=== PATIENT | male | born 1935 | race Caucasian/White ===

== ENCOUNTER 2016-09-15 13:18 | Inpatient (IN) ==
--- NOTE | 2016-09-15 13:28 | Emergency Department Note ---
Disposition Clinical Impression: UTI (urinary tract infection), Confusion, Abnormal chest x-ray, Urinary retention, Elevated troponin, Frail elderly, Abnormal EKG Disposition: Admitted As Inpatient [facility] Care Provider[facility] - Forms: ED Satisfaction Letter General Adult HPI - General Chief complaint: ED Recheck/Abnormal Lab/Rx Stated complaint: pulled out luu, UTI Time Seen by Provider: 09/15/16 13:27 Source: patient, EMS Limitations: altered mental status, age - History of Present Illness HPI Narrative: 81-year-old male reports emergency department EMS from the [facility]. There is concern for confusion. The patient's female relative reports the patient was seen previously at the [facility], they diagnosed him with a UTI and wanted keep in the hospital but they did not have a bed so they sent him home. The patient has been taking Macrodantin for the UTI. Per reports the patient's pulled his Luu out, he complains of suprapubic discomfort. The patient is usually fairly active and lives at home alone and takes care of himself. The patient's relative reports he has been more confused, there is no history of trauma. The patient had a remote CVA but usually still is capable of self-care. There is no history of convulsion. There is no history of unilateral arm weakness or numbness or dysarthria. There is no history of fever or chest pain or shortness of breath. No vomiting or diarrhea. No acute back pain. The patient is not able to give a clear history but his female alarm mechanism adjuster does give a lot of detail. Pain Scale: 0 - Related Data Previous Rx's Medication Instructions Recorded Ciprofloxacin [Cipro] 500 mg PO BID #14 tablet 01/11/16 Cephalexin [Keflex] 500 mg PO QID #40 capsule 03/11/16 Allergies Allergy/AdvReac Type Severity Reaction Status Date / Time codeine Allergy Itching Verified 03/13/16 04:46 All systems ED: reviewed and negative except as stated. Past Medical History - Past Medical History Medical history: Reports: cancer, CVA, diabetes, hyperlipidemia, hypertension, myocardial infarction, other Psychiatric history: Reports: no psych history - Social History Smoking Status: Former smoker Smokeless Tobacco Status: No Alcohol use: Reports: none Drug use: Reports: none Physical Exam - General Limitations: altered mental status, age General appearance: alert, in no apparent distress - Head Head exam: atraumatic, normocephalic, normal inspection - Eye Eye exam: Present: normal appearance, PERRL, EOMI - ENT ENT exam: normal exam, normal oropharynx, mucous membranes moist, normal external ear exam - Neck Neck exam: Present: normal inspection, full ROM, trachea midline. Absent: tenderness - Chest Chest inspection: Present: normal inspection, symmetric chest wall rise. Absent : tenderness - Respiratory Respiratory exam: Present: normal lung sounds bilaterally. Absent: respiratory distress - Cardiovascular Cardiovascular exam: Present: regular rate, normal rhythm, normal heart sounds - Abdominal Exam Abdominal exam: Present: soft. Absent: distention, guarding, rebound, rigidity Abdominal tenderness: Present: suprapubic, moderate - Extremities Exam Extremities exam: Present: normal inspection, full ROM. Absent: tenderness, normal capillary refill, pedal edema, joint swelling, calf tenderness - Expanded Lower Extremity Exam Lower leg exam: Absent: Homans' sign Neurovascular/Tendon exam: Present: normal capillary refill. Absent: motor deficit, sensory deficit, tendon deficit - Back Exam Back exam: Present: normal inspection, full ROM. Absent: tenderness, CVA tenderness (R), CVA tenderness (L), vertebral tenderness - Neurological Exam Neurological exam: Present: alert, oriented X3, CN II-XII intact. Absent: motor sensory deficit - Psychiatric Psychiatric exam: Present: normal affect, normal mood - Skin Skin exam: Present: warm, dry, intact, normal color. Absent: rash, cyanosis, diaphoresis, erythema, pallor, mottled Course Vital Signs Temperature 98.4 F 09/15/16 13:20 Pulse Rate 82 09/15/16 13:20 Respiratory Rate 18 09/15/16 13:20 Blood Pressure 118/64 09/15/16 13:20 O2 Sat by Pulse Oximetry 93 L 09/15/16 13:20 Temperature 98.4 F 09/15/16 13:20 Pulse Rate 85 09/15/16 15:54 Respiratory Rate 18 09/15/16 15:54 Blood Pressure 134/68 09/15/16 15:54 O2 Sat by Pulse Oximetry 100 09/15/16 15:54 Oxygen Delivery Oxygen Delivery Nasal Cannula Medical Decision Making - [facility] Narrative Medical decision making narrative: The patient appears to have failed outpatient therapy, he has acute urinary retention, a Luu catheter was placed and copious return was removed, the patient's abdominal pain resolved, the patient is confused, he has an elevated troponin, a notably elevated CRP and an abnormal chest x-ray. The patient is also slightly hypoxemic. Oxygen was supplied. Levaquin was ordered. Blood cultures were ordered. IV fluids were given. Per the patient's family member, he has malignancy which she is unaware of. The patient is currently stable, based on his multiple abnormal findings as well confusion and apparent failed outpatient therapy I think the patient would best be admitted to the hospital. I consulted with the hospitalist on-call. - Lab Data Lab results reviewed: Yes I reviewed the patient's lab results. Result diagrams: 09/15/16 14:08 09/15/16 14:08 Lab Results 09/15/16 09/15/16 09/15/16 Range/Units 14:08 14:08 14:08 WBC 8.5 (4.3-11.1) K/mcL RBC 4.44 (4.19-5.50) M/mcL Hgb 13.0 (12.9-16.9) g/dL Hct 39.7 (37.5-50.1) % MCV 89.4 (83.0-100.0) fL MCH 29.3 (28.0-33.3) pg MCHC 32.7 (31.6-35.5) g/dL RDW 14.6 H (11.5-14.5) % Plt Count 128 L (140-400) K/mcL MPV 10.7 (9.4-12.4) fL Immature Gran % 1.1 (0-4) % Seg Neutrophils % 86.0 % Lymphocytes % 6.1 % Monocytes % 6.1 % Eosinophils % 0.1 % Basophils % 0.6 % Neutrophils # 7.3 (1.6-8.9) K/mcL Lymphocytes # 0.5 L (0.6-4.6) K/mcL Monocytes # 0.5 (0.0-1.3) K/mcL Eosinophils # 0.0 (0.0-0.6) K/mcL Basophils # 0.1 (0.0-0.2) K/mcL Sodium 137 (136-145) mEq/L Potassium 3.8 (3.5-4.5) mEq/L Chloride 106 (98-109) mEq/L Carbon Dioxide 24 (19-29) mEq/L BUN 37 H (8-26) mg/dL Creatinine 1.18 (0.72-1.25) mg/dL Est GFR ( Amer) > 60 (> 60) Est GFR (Non-Af Amer) 59 L (> 60) BUN/Creatinine Ratio 31 H (6-26) Glucose 126 H (70-99) mg/dL Calculated Osmolality 294 (280-300) Lactic Acid 1.2 (0.5-2.2) mmol/L Calcium 8.4 L (8.6-10.8) mg/dL Total Bilirubin (0.2-1.2) mg/dL Direct Bilirubin (0.0-0.5) mg/dL Indirect Bilirubin (0.0-1.2) mg/dL AST (5-34) Units/L ALT (0-55) Units/L Alkaline Phosphatase (38-126) Units/L Ammonia (18-72) mcmol/L Troponin I (0-0.03) ng/mL C-Reactive Protein (Less than 5) mg/L Serum Total Protein (6.0-8.3) g/dL Albumin (3.5-5.0) g/dL Globulin (2.4-3.5) g/dL Albumin/Globulin Ratio (1.1-2.2) Urine Color (Yellow) Urine Clarity (Clear) Urine pH (5.0-8.0) pH Units Ur Specific [place] (1.010-1.025) Urine Protein (Neg-Trace) mg/dL Urine Glucose (UA) (Normal) mg/dL Urine Ketones (Negative) mg/dL Urine Blood (Negative) Urine Nitrite (Negative) Urine Bilirubin (Negative) Urine Urobilinogen (Normal) mg/dL Ur Leukocyte Esterase (Negative) Urine Microscopic RBC (0-3) per hpf Urine Microscopic WBC (0-3) per hpf Ur Squamous Epith Cells (None-Few) per lpf Urine Bacteria (None-Few) per hpf Hyaline Casts (None-Few) per lpf Ur Culture Indicated? (NO) Salicylates (15-30) mg/dL 09/15/16 09/15/16 09/15/16 Range/Units 14:08 14:08 14:08 WBC (4.3-11.1) K/mcL RBC (4.19-5.50) M/mcL Hgb (12.9-16.9) g/dL Hct (37.5-50.1) % MCV (83.0-100.0) fL MCH (28.0-33.3) pg MCHC (31.6-35.5) g/dL RDW (11.5-14.5) % Plt Count (140-400) K/mcL MPV (9.4-12.4) fL Immature Gran % (0-4) % Seg Neutrophils % % Lymphocytes % % Monocytes % % Eosinophils % % Basophils % % Neutrophils # (1.6-8.9) K/mcL Lymphocytes # (0.6-4.6) K/mcL Monocytes # (0.0-1.3) K/mcL Eosinophils # (0.0-0.6) K/mcL Basophils # (0.0-0.2) K/mcL Sodium (136-145) mEq/L Potassium (3.5-4.5) mEq/L Chloride (98-109) mEq/L Carbon Dioxide (19-29) mEq/L BUN (8-26) mg/dL Creatinine (0.72-1.25) mg/dL Est GFR ( Amer) (> 60) Est GFR (Non-Af Amer) (> 60) BUN/Creatinine Ratio (6-26) Glucose (70-99) mg/dL Calculated Osmolality (280-300) Lactic Acid (0.5-2.2) mmol/L Calcium (8.6-10.8) mg/dL Total Bilirubin 1.0 (0.2-1.2) mg/dL Direct Bilirubin 0.5 (0.0-0.5) mg/dL Indirect Bilirubin 0.5 (0.0-1.2) mg/dL AST 35 H (5-34) Units/L ALT 13 (0-55) Units/L Alkaline Phosphatase 283 H (38-126) Units/L Ammonia 27 (18-72) mcmol/L Troponin I 0.11 H* (0-0.03) ng/mL C-Reactive Protein 256 H (Less than 5) mg/L Serum Total Protein 6.3 (6.0-8.3) g/dL Albumin 2.3 L (3.5-5.0) g/dL Globulin 4.0 H (2.4-3.5) g/dL Albumin/Globulin Ratio 0.6 L (1.1-2.2) Urine Color (Yellow) Urine Clarity (Clear) Urine pH (5.0-8.0) pH Units Ur Specific [place] (1.010-1.025) Urine Protein (Neg-Trace) mg/dL Urine Glucose (UA) (Normal) mg/dL Urine Ketones (Negative) mg/dL Urine Blood (Negative) Urine Nitrite (Negative) Urine Bilirubin (Negative) Urine Urobilinogen (Normal) mg/dL Ur Leukocyte Esterase (Negative) Urine Microscopic RBC (0-3) per hpf Urine Microscopic WBC (0-3) per hpf Ur Squamous Epith Cells (None-Few) per lpf Urine Bacteria (None-Few) per hpf Hyaline Casts (None-Few) per lpf Ur Culture Indicated? (NO) Salicylates (15-30) mg/dL 09/15/16 09/15/16 Range/Units 14:08 14:40 WBC (4.3-11.1) K/mcL RBC (4.19-5.50) M/mcL Hgb (12.9-16.9) g/dL Hct (37.5-50.1) % MCV (83.0-100.0) fL MCH (28.0-33.3) pg MCHC (31.6-35.5) g/dL RDW (11.5-14.5) % Plt Count (140-400) K/mcL MPV (9.4-12.4) fL Immature Gran % (0-4) % Seg Neutrophils % % Lymphocytes % % Monocytes % % Eosinophils % % Basophils % % Neutrophils # (1.6-8.9) K/mcL Lymphocytes # (0.6-4.6) K/mcL Monocytes # (0.0-1.3) K/mcL Eosinophils # (0.0-0.6) K/mcL Basophils # (0.0-0.2) K/mcL Sodium (136-145) mEq/L Potassium (3.5-4.5) mEq/L Chloride (98-109) mEq/L Carbon Dioxide (19-29) mEq/L BUN (8-26) mg/dL Creatinine (0.72-1.25) mg/dL Est GFR ( Amer) (> 60) Est GFR (Non-Af Amer) (> 60) BUN/Creatinine Ratio (6-26) Glucose (70-99) mg/dL Calculated Osmolality (280-300) Lactic Acid (0.5-2.2) mmol/L Calcium (8.6-10.8) mg/dL Total Bilirubin (0.2-1.2) mg/dL Direct Bilirubin (0.0-0.5) mg/dL Indirect Bilirubin (0.0-1.2) mg/dL AST (5-34) Units/L ALT (0-55) Units/L Alkaline Phosphatase (38-126) Units/L Ammonia (18-72) mcmol/L Troponin I (0-0.03) ng/mL C-Reactive Protein (Less than 5) mg/L Serum Total Protein (6.0-8.3) g/dL Albumin (3.5-5.0) g/dL Globulin (2.4-3.5) g/dL Albumin/Globulin Ratio (1.1-2.2) Urine Color Dark Yellow (Yellow) Urine Clarity Cloudy A (Clear) Urine pH 6.5 (5.0-8.0) pH Units Ur Specific [place] 1.019 (1.010-1.025) Urine Protein 100 H (Neg-Trace) mg/dL Urine Glucose (UA) Normal (Normal) mg/dL Urine Ketones Trace H (Negative) mg/dL Urine Blood Moderate H (Negative) Urine Nitrite Positive A (Negative) Urine Bilirubin Negative (Negative) Urine Urobilinogen Normal (Normal) mg/dL Ur Leukocyte Esterase Moderate H (Negative) Urine Microscopic RBC 5-15 H (0-3) per hpf Urine Microscopic WBC 50-100 H (0-3) per hpf Ur Squamous Epith Cells None Seen (None-Few) per lpf Urine Bacteria Many H (None-Few) per hpf Hyaline Casts None Seen (None-Few) per lpf Ur Culture Indicated? YES A (NO) Salicylates < 5.0 L (15-30) mg/dL - Radiology Data Radiology results reviewed: Yes I reviewed the patient's radiology results.
[2016-09-15] MEDS ORDERED: 0.9 % Sodium Chloride 1,000 ML IVC ONE (13:36)
[2016-09-15 14:22] LABS: Basophils # 0.1 K/mcL (0.0-0.2); Basophils % 0.6 %; Eosinophils % 0.1 %; Hematocrit 39.7 % (37.5-50.1); Immature Granulocytes % 1.1 % (0-4); Lymphocytes # 0.5 K/mcL (0.6-4.6); Lymphocytes % 6.1 %; Mean Corpuscular HGB Conc 32.7 g/dL (31.6-35.5); Mean Corpuscular Hemoglobin 29.3 pg (28.0-33.3); Mean Corpuscular Volume 89.4 fL (83.0-100.0); Mean Platelet Volume 10.7 fL (9.4-12.4); Monocytes # 0.5 K/mcL (0.0-1.3); Monocytes % 6.1 %; Neutrophils # 7.3 K/mcL (1.6-8.9); Platelet Count 128 K/mcL (140-400); Red Blood Count 4.44 M/mcL (4.19-5.50); Red Cell Distribution Width 14.6 % (11.5-14.5)
[2016-09-15 14:33] LABS: BUN/Creatinine Ratio 31 (6-26); Blood Urea Nitrogen 37 mg/dL (8-26); Calcium 8.4 mg/dL (8.6-10.8); Carbon Dioxide 24 mEq/L (19-29); Chloride 106 mEq/L (98-109); Glucose 126 mg/dL (70-99); Osmolality,Calculated 294 (280-300); Potassium 3.8 mEq/L (3.5-4.5); Sodium 137 mEq/L (136-145); eGFR For African Americans > 60 (> 60); eGFR For Non-African Americans 59 (> 60)
[2016-09-15 14:40] LABS: Albumin 2.3 g/dL (3.5-5.0); Albumin/Globulin Ratio 0.6 (1.1-2.2); Bilirubin,Direct 0.5 mg/dL (0.0-0.5); Bilirubin,Indirect 0.5 mg/dL (0.0-1.2); Total Protein 6.3 g/dL (6.0-8.3)
[2016-09-15 14:48] LABS: Bilirubin,Urine Negative (Negative); Blood,Urine Moderate (Negative); Clarity,Urine Cloudy (Clear); Color,Urine Dark Yellow (Yellow); Glucose,Urine (UA) Normal (Normal); Ketones,Urine Trace mg/dL (Negative); Leukocyte Esterase,Urine Moderate (Negative); Nitrite,Urine Positive (Negative); PH,Urine 6.5 pH Units (5.0-8.0); Protein,Urine 100 mg/dL (Neg-Trace); Specific Gravity,Urine 1.019 (1.010-1.025); Urobilinogen,Urine Normal (Normal)
[2016-09-15 14:51] LABS: Bacteria,Urine Many per hpf (None-Few); Hyaline Casts,Urine None Seen per lpf (None-Few); Squamous Epithelial Cell,Urine None Seen per lpf (None-Few); WBC,Urine 50-100 per hpf (0-3)
[2016-09-15] MEDS ORDERED: Levofloxacin 750 MG/150 ML 750 MG/150 ML BAG IVPB ONE (15:38)
[2016-09-15] MEDS ORDERED: Aspirin 325 MG TABLET PO ONE (15:40)
--- NOTE | 2016-09-15 16:35 | Electrocardiograph Report ---
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
[2016-09-15] MEDS ORDERED: Nitroglycerin 0.4 MG TAB.SUBL SL PRN (16:52)
[2016-09-15] MEDS ORDERED: Ipratropium/Albuterol Neb 3 ML IH PRN (16:52)
[2016-09-15] MEDS ORDERED: *HR* Morphine 2 MG/ML SYRINGE IV PRN (16:52)
[2016-09-15] MEDS ORDERED: Acetaminophen 325 MG TABLET PO PRN (16:53)
[2016-09-15] MEDS ORDERED: Dextrose Gel 15 GM PO PRN ×2 (16:53)
[2016-09-15] MEDS ORDERED: Naloxone 0.4 MG/ML INJ IVP PRN (16:53)
[2016-09-15] MEDS ORDERED: *HR* Dextrose 50 % in Water (Syg) 50 ML SYRINGE IVP PRN (16:53)
[2016-09-15] MEDS ORDERED: Ondansetron 4 MG/2 ML VIAL IVP PRN (16:53)
[2016-09-15] MEDS ORDERED: D5% in Water 1,000 ML IV PRN (16:53)
--- NOTE | 2016-09-15 17:01 | Internal Med History&Physical ---
Date of Encounter: 09/15/16 Time of Encounter: 16:58 Assessment and Plan (1) Metabolic encephalopathy Current visit: Yes Status: Acute Acute metabolic encephalopathy likely secondary to severe urinary tract infection provoked by urinary retention plus community-acquired pneumonia Continue Valenzuela catheter Continue Levaquin Blood cultures Mild hydration, fall precautions (2) Hypertension Current visit: Yes Status: Acute use hydralazine as needed Qualifiers: Hypertension type: essential hypertension Qualified Code(s): I10 - Essential (primary) hypertension (3) Abnormal chest x-ray Current visit: Yes Status: Acute Multiple opacities Unknown whether the patient has a prior diagnosis of cancer or not. According to the ER physician his daughter mentioned that the patient does not know of a malignancy that was apparently diagnosed before. Consider CT scan of the chest (4) Elevated troponin Current visit: Yes Status: Acute Likely secondary to demand ischemia Monitor troponins, start aspirin, metoprolol, Lipitor Nitroglycerin as needed, morphine as needed Check an echocardiogram and lipid panel Telemetry (5) UTI (urinary tract infection) Current visit: Yes Status: Acute Qualifiers: Urinary tract infection type: site unspecified Hematuria presence: without hematuria Qualified Code(s): N39.0 - Urinary tract infection, site not specified (6) Urinary retention Current visit: Yes Status: Acute Continue Valenzuela catheter (7) Diabetes Current visit: Yes Status: Acute Insulin sliding scale PPI for GI prophylaxis and Lovenox for the due to prophylaxis. The patient will be admitted as inpatient. He is a full code. Time spent on this admission 40 minutes. High risk for falling Qualifiers: Diabetes mellitus type: type 2 Diabetes mellitus complication status: without complication Diabetes mellitus residential insulin use: without residential use Qualified Code(s): E11.9 - Type 2 diabetes mellitus without complications Internal Medicine - H&P: HPI Chief complaint: AMS Admitted From: Emergency Dept History of present illness: Mr. Olsen is a 81 year old male with past medical history of remote CVA, diabetes type 2 not insulin-dependent, hypertension, hyperlipidemia, CAD, brought to the emergency room for increased confusion. Apparently the patient went to the [place] before and was diagnosed with a urinary tract infection, possibly he was treated with Macrodantin. She returned today his UA shows positive nitrates 100 white blood cells and many bacteria. A CT scan of the head was performed showing an old infarct in the left MCA territory, also bilateral sphenoid sinusitis. The patient is completely confused, not able to give any history. His CRP is 256 troponin 0.11, he is not in distress, EKG shows no new ischemic changes/abnormalities. According to the ER physician he is saturation of oxygen drop to the 80s, a chest x-ray shows bilateral interstitial opacities possible pneumonia versus fibrosis. It is not clear whether he has a prior history of cancer. No family members were present during my examination. Past Med Surg Social Fam HX - Past Medical History Medical history: cancer (Unknown whether this is a new or old diagnosis), coronary artery disease, CVA, diabetes (Not insulin-dependent), hyperlipidemia, hypertension, myocardial infarction, other (Prior urinary tract infection with Providencia and Citrobacter.) Psychiatric history: no psych history - Past Surgical History Surgical History: no surgical history (Unknown whether he has a surgical history are not) - Social History Smoking Status: Former smoker Smokeless Tobacco Status: No Alcohol use: none Drug use: none - Additional Family History Additional family history: Unknown Internal Medicine - H&P: Meds Ciprofloxacin [Cipro] 500 mg PO BID #14 tablet 01/11/16 [Rx] Cephalexin [Keflex] 500 mg PO QID #40 capsule 03/11/16 [Rx] Allergies codeine Allergy (Verified 03/13/16 04:46) Itching All Systems PM: A 10-system review of systems was performed and is negative for pertinent findings except as documented above in the HPI. Review of systems: Unable to be completed due to the patient's confusion - Constitutional Vitals: Temp Pulse Resp BP Pulse Ox 98.4 F 89 18 136/74 100 09/15/16 13:20 09/15/16 16:40 09/15/16 16:40 09/15/16 16:40 09/15/16 16:40 General appearance: Present: A&O X 0 - Head Head exam: Present: atraumatic, normocephalic - Eye Eye exam: Present: PERRL, conjuntiva pink, sclera anicteric Pupils: Present: PERRL - Neck Neck exam general surgery: Present: supple, trachea midline. Absent: lymphadenopathy - Respiratory Respiratory exam: Present: CTAB, rales (Bibasilar crackles). Absent: accessory muscle use, rhonchi, wheezes - Cardiovascular Cardiovascular exam: Present: RRR, +S1, +S2. Absent: diastolic murmur, gallop, rubs, systolic murmur - GI/Abdominal GI/Abdominal exam: Present: normal bowel sounds, soft, no peritoneal signs. Absent: distended, tenderness - Extremities Exam Extremities exam: Present: warm, radial pulses palpable and symetrical. Absent : calf tenderness, cyanotic, pedal edema - Neurological Exam Neurological exam: Present: CN II-XII intact, no focal deficits. Absent: oriented X3, pronater drift, facial droop, speech deficit - Skin Skin exam: Present: dry, intact Internal Med - H&P Results - Labs CBC & Chem 7: 09/15/16 14:08 09/15/16 14:08
[2016-09-15] MEDS ORDERED: *HR* LORazepam 2 MG/ML VIAL IVP PRN (17:08)
[2016-09-15] MEDS: Insulin LISPRO 300 UNITS/3 ML VIAL SQ SCH ×2 (18:08→21:41)
[2016-09-15] MEDS: *HR* Enoxaparin 40 MG/0.4 ML SYRINGE SQ SCH (18:09)
[2016-09-15] MEDS: 0.9 % Sodium Chloride 1,000 ML IVC SCH (18:09)
[2016-09-16 06:24] LABS: Hematocrit 35.9 % (37.5-50.1); Hemoglobin 11.7 g/dL (12.9-16.9); Mean Corpuscular HGB Conc 32.6 g/dL (31.6-35.5); Mean Corpuscular Hemoglobin 29.5 pg (28.0-33.3); Mean Corpuscular Volume 90.4 fL (83.0-100.0); Mean Platelet Volume 10.9 fL (9.4-12.4); Platelet Count 112 K/mcL (140-400); Red Blood Count 3.97 M/mcL (4.19-5.50); Red Cell Distribution Width 14.6 % (11.5-14.5)
[2016-09-16 06:41] LABS: BUN/Creatinine Ratio 30 (6-26); Blood Urea Nitrogen 27 mg/dL (8-26); Calcium 8.4 mg/dL (8.6-10.8); Carbon Dioxide 21 mEq/L (19-29); Chloride 110 mEq/L (98-109); Chol/HDL Ratio 7.6 (0-4.9); Cholesterol 168 mg/dL (< 200); Glucose 89 mg/dL (70-99); HDL Cholesterol 22 mg/dL (40-59); LDL Cholesterol,Calculated 121 mg/dL (0-99); Osmolality,Calculated 295 (280-300); Potassium 3.9 mEq/L (3.5-4.5); Sodium 140 mEq/L (136-145); Triglycerides 125 mg/dL (< 150); eGFR For African Americans > 60 (> 60); eGFR For Non-African Americans > 60 (> 60)
[2016-09-16] MEDS: *HR* Enoxaparin 40 MG/0.4 ML SYRINGE SQ SCH (06:42)
[2016-09-16] MEDS: 0.9 % Sodium Chloride 1,000 ML IVC SCH ×2 (08:21→20:15)
[2016-09-16] MEDS: Insulin LISPRO 300 UNITS/3 ML VIAL SQ SCH ×4 (08:23→20:25)
[2016-09-16] MEDS: Aspirin 81 MG TAB.CHEW PO SCH (08:24)
[2016-09-16] MEDS ORDERED: Levofloxacin 500 MG/100 ML 500 MG/100 ML BAG IVPB SCH (09:00)
[2016-09-16] MEDS ORDERED: Levofloxacin 750 MG/150 ML 750 MG/150 ML BAG IVPB SCH (09:00)
--- NOTE | 2016-09-16 09:06 | Internal Med Progress Note ---
Date of Encounter: 09/16/16 Time of Encounter: 09:03 - Assessment and plan (1) Metabolic encephalopathy Current Visit: Yes Status: Acute Assessment and plan: Improving slightly but still remains confused. Likely due to underlying infection. Continue supportive care and treatment of underlying conditions. (2) UTI (urinary tract infection) Current Visit: Yes Status: Acute Assessment and plan: Urine culture and one set of blood culture grew gram-negative rods. We will change antibiotics to IV Rocephin due to common bacterial resistance to fluoroquinolones in this area. Continue to monitor closely. Qualifiers: Urinary tract infection type: acute cystitis Hematuria presence: without hematuria Qualified Code(s): N30.00 - Acute cystitis without hematuria (3) Bacteremia Current Visit: Yes Status: Acute Assessment and plan: One set of initial blood cultures grew gram-negative rods. Follow up final cultures and repeat blood cultures in a.m. Continue IV Rocephin and Zithromax for possible UTI and underlying pneumonia. High risk patient for progression to septic shock and worsening sepsis. (4) Coronary artery disease Current Visit: Yes Status: Chronic Qualifiers: Coronary Disease-Associated Artery/Lesion type: [place] artery [place] vs. transplanted heart: [place] heart Associated angina: without angina Qualified Code(s): I25.10 - Atherosclerotic heart disease of [place] coronary artery without angina pectoris (5) CVA (cerebral vascular accident) Current Visit: Yes Status: Inactive Qualifiers: CVA mechanism: unspecified Qualified Code(s): I63.9 - Cerebral infarction, unspecified (6) Diabetes Current Visit: Yes Status: Chronic Assessment and plan: Continue Accu-Chek blood glucose monitoring with sliding scale insulin as needed. Check hemoglobin A1c. Diabetic diet. Qualifiers: Diabetes mellitus type: type 2 Diabetes mellitus complication status: with kidney complications Diabetes mellitus complication detail: with chronic kidney disease Diabetes mellitus termite control technician insulin use: without termite control technician use Chronic kidney disease stage: stage 3 (moderate) Qualified Code(s): E11.22 - Type 2 diabetes mellitus with diabetic chronic kidney disease; N18.3 - Chronic kidney disease, stage 3 (moderate) (7) Elevated troponin Current Visit: Yes Status: Acute Assessment and plan: Likely due to underlying sepsis and demand ischemia. Continue telemetry monitoring and serial troponin trending. No complaints of acute chest pain at this time. Echocardiogram shows mild systolic and diastolic dysfunction, global left ventricular hypokinesis with mild MR. (8) Hypertension Current Visit: Yes Status: Chronic Qualifiers: Hypertension type: essential hypertension Qualified Code(s): I10 - Essential (primary) hypertension - Subjective Interval history: Able to tell me his name and knows that he said that in the hospital but remains confused. Talks about unrelated events. Reports no chest pain, abdominal pain, nausea or vomiting. Cannot remember why he is in the hospital. - Constitutional Vitals: Temp Pulse Resp BP Pulse Ox 98.4 F 82 14 112/70 93 L 09/16/16 06:32 09/16/16 06:32 09/16/16 06:32 09/16/16 06:32 09/16/16 06:32 General appearance: Present: A&O X 1 - Respiratory Respiratory exam: Present: CTAB. Absent: accessory muscle use, rales, rhonchi, wheezes - Cardiovascular Cardiovascular exam: Present: RRR, +S1, +S2. Absent: diastolic murmur, gallop, rubs, systolic murmur - GI/Abdominal GI/Abdominal exam: Present: normal bowel sounds, soft, no peritoneal signs. Absent: distended, tenderness - Extremities Exam Extremities exam: Present: full ROM, warm, radial pulses palpable and symetrical. Absent: calf tenderness, cyanotic, pedal edema - Neurological Exam Neurological exam: Present: altered, no focal deficits. Absent: pronater drift , facial droop, speech deficit - Skin Skin exam: Present: dry, intact Internal Medicine: Result - Labs CBC & Chem 7: 09/16/16 06:01 09/16/16 06:01 Labs: Short CBC 09/16/16 Range/Units 06:01 WBC 7.5 (4.3-11.1) K/mcL Hgb 11.7 L (12.9-16.9) g/dL Hct 35.9 L (37.5-50.1) % Plt Count 112 L (140-400) K/mcL BMP 09/16/16 06:01 Sodium 140 Potassium 3.9 Chloride 110 H Carbon Dioxide 21 BUN 27 H D Creatinine 0.89 Glucose 89 Calcium 8.4 L Cardiac Enzymes 09/15/16 Range/Units 20:18 Troponin I 0.12 H* (0-0.03) ng/mL Consult Discharge Plan - Plan [facility]errals: [facility] [Primary Care Provider[facility] -
[2016-09-16 12:44] LABS: Acinetobacter baumannii by PCR Not Detected (Not Detect); Candida albicans by PCR Not Detected (Not Detect); Candida glabrata by PCR Not Detected (Not Detect); Candida krusei by PCR Not Detected (Not Detect); Candida parapsilosis by PCR Not Detected (Not Detect); Candida tropicalis by PCR Not Detected (Not Detect); Enterococcus by PCR Not Detected (Not Detect); Escherichia coli by PCR Not Detected (Not Detect); Klebsiella oxytoca by PCR Not Detected (Not Detect); Klebsiella pneumoniae by PCR Not Detected (Not Detect); Pseudomonas aeruginosa by PCR Not Detected (Not Detect); Serratia marcescens by PCR Not Detected (Not Detect); Staphylococcus aureus by PCR Not Detected (Not Detect); Streptococcus agalactiae(B)PCR Not Detected (Not Detect); Streptococcus by PCR Not Detected (Not Detect); Streptococcus pneumoniae PCR Not Detected (Not Detect); Streptococcus pyogenes (A) PCR Not Detected (Not Detect)
--- NOTE | 2016-09-16 13:49 | ECHO - Doppler Report ---
Echocardiogram Name: Tacos Olsen Date of Study: 09/16/2016 Date: 1935 Ht: 73.0 in Medical Record#: [id number] Age: 81 Wt: 158.0 lb Gender: Male BSA: 1.95 Order #: [id number] Location: [facility] Room #: 2a22 Reading Physician: Juvenal Hartman DO, NIMO, TAM CARRENO Buggy Runner: Quintin Smallwood RDCS Ordering Physician: Brennon Mackay MD Primary Physician: None Indications: Elevated Troponin Impressions: LVEF 45-50%. Mild asymmetric hypertrophy of the basal septum. No LVOT obstruction. Mild global left ventricular systolic dysfunction. Mild left ventricular diastolic dysfunction. Normal right ventricular structure and function. Mild aortic regurgitation. Mild mitral regurgitation. Mild pulmonic regurgitation. No evidence of pulmonary hypertension. Left Ventricular Wall Motion: Rest Echo Findings The apex, apical inferior, mid inferior, basal inferior, apical anterior, mid anterior, basal anterior, apical septal, mid inferior septal, basal inferior septal, apical lateral, mid anterior lateral, basal anterior lateral, mid anterior septal, mid inferior lateral, basal anterior septal and basal inferior lateral wolf were hypokinetic. Findings: Study Quality * Technically adequate exam. ECG Findings * Normal sinus rhythm. Left Ventricle * LVEF 45-50%. * Normal LV chamber size. * Mild asymmetric hypertrophy of the basal septum. No LVOT obstruction. * Mild global left ventricular systolic dysfunction. * Mild left ventricular diastolic dysfunction. Right Ventricle * Normal right ventricular structure and function. Left Atrium * Mildly dilated left atrium. Right Atrium * Normal right atrial size. Interatrial Septum * Interatrial septum not well evaluated. Aortic Valve * Trileaflet aortic valve. * Mildly calcified aortic valve leaflets. * Mild aortic regurgitation. * No aortic stenosis. Mitral Valve * Mildly thickened mitral valve leaflets. * Mild mitral annular calcification * Mild mitral regurgitation. * No mitral stenosis. Tricuspid Valve * Normal tricuspid valve structure and function. * Trace tricuspid regurgitation. * No evidence of pulmonary hypertension. Pulmonic Valve * Normal pulmonic valve structure. * Mild pulmonic regurgitation. Aorta * Normally sized aortic root. Pericardium * The pericardium appears normal. IVC * The IVC is not well evaluated. Pulmonary Artery * Normal visualized portions of the main pulmonary artery. History Measurements: BP: 112/ 70 2D Normal Values RVIDd: 2.80 cm <2.7 cm IVSd: 1.30 cm 0.6 - 1.0 cm LVIDd: 4.50 cm 3.7 - 5.6 cm LVPWd: .80 cm 0.6 - 1.1 cm LVIDs: 3.80 cm 1.5 - 3.6 cm AO: 3.50 cm < 4.0 cm LA: 3.40 cm 2.0 - 4.0cm %FS: 15.60 cm >25 % LA volume: 60 Mitral Valve Peak E:.50 m/sec Peak A:1.23 m/sec E/A Ratio:0.4 Peak E' Lat Jose:2.05 cm/s Peak E' Med Jose:2.14 cm/s E/E' Lat Ratio:24.2 E/E' Med Ratio:23.2 Tricuspid Valve TV Regurg Peak Grad: 27.00mmHg TV Regurg Peak Jose: 2.58m/sec Updated by Juvenal Hartman DO, NIMO, TAM CARRENO on 09/16/2016 1:42:54 PM electronically signed on 09/16/2016 1:43:55 PM with status of Final Wall Motion [place]: 1=Normal, 2=Hypokinesis, 3=Akinesis, 4=Dyskinesis, 5=Aneurysmal, 6=Hyperkinetic, X=Not Visualized (Blank)=Missing
[2016-09-16] MEDS: Azithromycin 500 MG in D5% in Water 250 ML IVPB SCH (20:15)
[2016-09-17 00:37] LABS: Basophils % 0.7 %; Eosinophils # 0.3 K/mcL (0.0-0.6); Hematocrit 34.2 % (37.5-50.1); Hemoglobin 11.4 g/dL (12.9-16.9); Immature Granulocytes % 0.5 % (0-4); Lymphocytes # 1.1 K/mcL (0.6-4.6); Lymphocytes % 17.6 %; Mean Corpuscular HGB Conc 33.3 g/dL (31.6-35.5); Mean Corpuscular Hemoglobin 29.8 pg (28.0-33.3); Mean Corpuscular Volume 89.3 fL (83.0-100.0); Mean Platelet Volume 10.9 fL (9.4-12.4); Monocytes # 0.7 K/mcL (0.0-1.3); Monocytes % 10.7 %; Platelet Count 106 K/mcL (140-400); Red Blood Count 3.83 M/mcL (4.19-5.50); Red Cell Distribution Width 14.4 % (11.5-14.5); Segmented Neutrophils % 65.5 %
[2016-09-17 00:54] LABS: Hemoglobin A1C 5.2 %
[2016-09-17 00:56] LABS: BUN/Creatinine Ratio 32 (6-26); Blood Urea Nitrogen 24 mg/dL (8-26); Calcium 8.1 mg/dL (8.6-10.8); Carbon Dioxide 21 mEq/L (19-29); Chloride 107 mEq/L (98-109); Glucose 82 mg/dL (70-99); Osmolality,Calculated 285 (280-300); Potassium 3.7 mEq/L (3.5-4.5); Sodium 136 mEq/L (136-145); eGFR For African Americans > 60 (> 60); eGFR For Non-African Americans > 60 (> 60)
[2016-09-17] MEDS: *HR* Enoxaparin 40 MG/0.4 ML SYRINGE SQ SCH (05:41)
[2016-09-17] MEDS: Insulin LISPRO 300 UNITS/3 ML VIAL SQ SCH ×4 (07:59→21:49)
[2016-09-17] MEDS: Aspirin 81 MG TAB.CHEW PO SCH (08:00)
--- NOTE | 2016-09-17 09:13 | Internal Med Progress Note ---
Date of Encounter: 09/17/16 Time of Encounter: 09:11 - Assessment and plan (1) Metabolic encephalopathy Current Visit: Yes Status: Acute Assessment and plan: Likely due to underlying infection. Improving, noted to be more alert and oriented today. Continues to have slow and hesitant speech which may be his baseline. No family at bedside. Continue supportive care and treatment of underlying conditions. Patient appears to be weak and is noted to be living independently prior to this hospitalization. Physical and occupational therapy evaluation, social worker health services consult for safe discharge. (2) UTI (urinary tract infection) Current Visit: Yes Status: Acute Assessment and plan: Urine culture and one set of blood culture grew gram-negative rods. Final urine culture grows Morganella morganii, pansensitive. Continue IV Rocephin. Repeat blood cultures show no growth so far. Continue to monitor closely. Qualifiers: Urinary tract infection type: acute cystitis Hematuria presence: without hematuria Qualified Code(s): N30.00 - Acute cystitis without hematuria (3) Bacteremia Current Visit: Yes Status: Acute Assessment and plan: Gram-negative bacteremia Secondary to UTI. One set of initial blood cultures grew gram-negative rods. Follow up final culturesa, repeat blood cultures so far negative. Continue IV Rocephin and Zithromax for possible UTI and underlying pneumonia. (4) Coronary artery disease Current Visit: Yes Status: Chronic Qualifiers: Coronary Disease-Associated Artery/Lesion type: [place] artery [place] vs. transplanted heart: [place] heart Associated angina: without angina Qualified Code(s): I25.10 - Atherosclerotic heart disease of [place] coronary artery without angina pectoris (5) Diabetes Current Visit: Yes Status: Chronic Assessment and plan: Continue Accu-Chek blood glucose monitoring with sliding scale insulin as needed. Check hemoglobin A1c. Diabetic diet. Qualifiers: Diabetes mellitus type: type 2 Diabetes mellitus complication status: with kidney complications Diabetes mellitus complication detail: with chronic kidney disease Diabetes mellitus longterm insulin use: without longterm use Chronic kidney disease stage: stage 3 (moderate) Qualified Code(s): E11.22 - Type 2 diabetes mellitus with diabetic chronic kidney disease; N18.3 - Chronic kidney disease, stage 3 (moderate) (6) Elevated troponin Current Visit: Yes Status: Acute Assessment and plan: Likely due to underlying sepsis and demand ischemia. Troponin noted to be trending down at this time. No complaints of acute chest pain at this time. Echocardiogram shows mild systolic and diastolic dysfunction, global left ventricular hypokinesis with mild MR and AR. (7) Hypertension Current Visit: Yes Status: Chronic Qualifiers: Hypertension type: essential hypertension Qualified Code(s): I10 - Essential (primary) hypertension - Subjective Interval history: Patient appears much better and more alert today; able to tell me his name and where he is; no c/o- chest or abdominal pain; good appetite; sitting up in a chair; - Constitutional Vitals: Temp Pulse Resp BP Pulse Ox 97.5 F L 86 16 133/70 98 09/17/16 07:15 09/17/16 07:15 09/17/16 07:15 09/17/16 07:15 09/17/16 07:15 General appearance: Present: A&O X 2 - Head Head exam: Present: atraumatic, normocephalic - Neck Neck exam general surgery: Present: supple, trachea midline. Absent: lymphadenopathy - Respiratory Respiratory exam: Present: CTAB. Absent: accessory muscle use, rales, rhonchi, wheezes - Cardiovascular Cardiovascular exam: Present: RRR, +S1, +S2. Absent: diastolic murmur, gallop, rubs, systolic murmur - GI/Abdominal GI/Abdominal exam: Present: normal bowel sounds, soft, no peritoneal signs. Absent: distended, tenderness - Extremities Exam Extremities exam: Present: full ROM, pedal edema, warm, radial pulses palpable and symetrical. Absent: calf tenderness, cyanotic - Neurological Exam Neurological exam: Present: CN II-XII intact, oriented X3, no focal deficits. Absent: pronater drift, facial droop, speech deficit - Skin Skin exam: Present: dry, intact, petechiae (multiple petechiae in B/L UE) Internal Medicine: Result - Labs CBC & Chem 7: 09/17/16 00:32 09/17/16 00:32 Labs: Short CBC 09/17/16 Range/Units 00:32 WBC 6.2 (4.3-11.1) K/mcL Hgb 11.4 L (12.9-16.9) g/dL Hct 34.2 L (37.5-50.1) % Plt Count 106 L (140-400) K/mcL Neutrophils # 4.0 (1.6-8.9) K/mcL BMP 09/17/16 00:32 Sodium 136 Potassium 3.7 Chloride 107 Carbon Dioxide 21 BUN 24 Creatinine 0.74 Glucose 82 Calcium 8.1 L Cardiac Enzymes 09/16/16 09/17/16 Range/Units 17:58 00:32 Troponin I 0.08 H* 0.06 H* (0-0.03) ng/mL Consult Discharge Plan - Plan [facility]errals: [facility] [Primary Care Provider] -
[2016-09-17] MEDS ORDERED: Levofloxacin 750 MG/150 ML 750 MG/150 ML BAG IVPB SCH (16:00)
[2016-09-17] MEDS: Azithromycin 500 MG in D5% in Water 250 ML IVPB SCH (18:05)
[2016-09-18] MEDS: *HR* Enoxaparin 40 MG/0.4 ML SYRINGE SQ SCH (05:10)
[2016-09-18] MEDS: Insulin LISPRO 300 UNITS/3 ML VIAL SQ SCH ×3 (08:15→17:01)
[2016-09-18] MEDS: Aspirin 81 MG TAB.CHEW PO SCH (08:15)
[2016-09-18] MEDS ORDERED: Levofloxacin 500 MG/100 ML 500 MG/100 ML BAG IVPB SCH (09:00)
[2016-09-18] MEDS ORDERED: *HR* OxyCODONE Immed Rel 5 MG TABLET PO PRN ×2 (12:45)
[2016-09-18] MEDS: 0.9 % Sodium Chloride 1,000 ML IVC SCH (14:50)
--- NOTE | 2016-09-18 15:17 | Discharge Summary ---
Date of Encounter: 09/18/16 Time of Encounter: 09:00 - Discharge Diagnosis (1) Metabolic encephalopathy Priority: Primary Status: Resolved (2) UTI (urinary tract infection) Priority: Primary Status: Acute Qualifiers: Urinary tract infection type: acute cystitis Hematuria presence: without hematuria Qualified Code(s): N30.00 - Acute cystitis without hematuria (3) Bacteremia Priority: Primary Status: Acute (4) Coronary artery disease Priority: Secondary Status: Chronic Qualifiers: Coronary Disease-Associated Artery/Lesion type: [place] artery [place] vs. transplanted heart: [place] heart Associated angina: without angina Qualified Code(s): I25.10 - Atherosclerotic heart disease of [place] coronary artery without angina pectoris (5) Diabetes Priority: Secondary Status: Chronic Qualifiers: Diabetes mellitus type: type 2 Diabetes mellitus complication status: with kidney complications Diabetes mellitus complication detail: with chronic kidney disease Diabetes mellitus half-way insulin use: without shipping packer use Chronic kidney disease stage: stage 3 (moderate) Qualified Code(s): E11.22 - Type 2 diabetes mellitus with diabetic chronic kidney disease; N18.3 - Chronic kidney disease, stage 3 (moderate) (6) Elevated troponin Priority: Primary Status: Resolved (7) Hypertension Priority: Secondary Status: Chronic Qualifiers: Hypertension type: essential hypertension Qualified Code(s): I10 - Essential (primary) hypertension (8) Sepsis Priority: Primary Status: Resolved Qualifiers: Sepsis type: sepsis due to unspecified organism Qualified Code(s): A41.9 - Sepsis, unspecified organism - Discharge Medications Prescriptions: Levofloxacin [Levaquin] 500 mg PO DAILY #12 tablet Home Medications: Aspirin [Ecotrin] 325 mg PO DAILY 09/15/16 [History] Bicalutamide [Casodex] 50 mg PO DAILY 09/15/16 [History] Budesonide/Formoterol 160/4.5 [Symbicort 160/4.5] 2 puff IH BID 09/15/16 [ History] Clopidogrel [Plavix] 75 mg PO DAILY 09/15/16 [History] Furosemide [Lasix] 20 mg PO DAILY PRN 09/15/16 [History] GlipiZIDE [Glucotrol] 2.5 mg PO BID 09/15/16 [History] Metoprolol XL (24 HR) Succ [Toprol Xl] 12.5 mg PO DAILY 09/15/16 [History] Naproxen [Naprosyn] 500 mg PO BID PRN 09/15/16 [History] Potassium Chloride [Klor-Con 10] 10 meq PO DAILY 09/15/16 [History] Tamsulosin HCl [Flomax] 0.4 mg PO DAILY 09/15/16 [History] Vit C/E/Zn/Coppr/Lutein/Zeaxan [Preservision Areds 2 Softgel] 1 cap PO BID 09/15 [History] Levofloxacin [Levaquin] 500 mg PO DAILY #12 tablet 09/18/16 [Rx] Allergies/Adverse Reactions: Allergies codeine Allergy (Verified 03/13/16 04:46) Itching Procedures/tests Complete & Pending: Procedures Performed prior 72 hours Category Date Time Status EV echocardiogram Routine Y 09/15/16 17:08 Completed Date of admission: 09/15/16 16:53 Primary care physician: [facility] Consults: 09/16/16 09:07 Consult to Occupational Therapy [CONS] Routine Comment: Evaluate, develop and implement POC Consult to Physical Therapy [CONS] Routine Comment: Evaluate, develop and implement POC 09/16/16 18:13 Consult to Executive Team Leader [CONS] Routine Reason for SW Consult: discharge planning. Discharging clinician: Britney Casas Anticipated date of discharge: 09/18/16 - Patient Status Disposition: Transfer SNF Condition: Good Functional capacity at discharge: uses cane/walker Overall status at discharge: patient is progressing back to baseline - Discharge Instructions Follow Up With: [facility] [Primary Care Provider] - (Red team.) - Diet and Activity Activity: as per physical therapy Diet: diabetic diet, low fat, low cholesterol, low salt diet Hospital course: Mr. Olsen is a 81 year old male with the above medical problems, admitted with confusion. He was noted to have sepsis from UTI and started on IV hydration and empiric IV antibiotics. Blood and urine cultures initially grew Morganella morganii, and his antibiotics were changed to iV Levaquin in anticipation of discharge, and he tolerated well. Repeat blood cultures remained negative. 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 PT evaluation was done and recommend ECF placement and he is medically stable for discharge. - Time Spent with Patient Total time spent providing and/or coordinating discharge services: Greater than 30 minutes (45 min) - Constitutional Vitals: Temp Pulse Resp BP Pulse Ox 97.5 F L 80 20 150/78 95 09/18/16 11:27 09/18/16 11:27 09/18/16 11:27 09/18/16 11:27 09/18/16 11:27 General appearance: Present: A&O X 2 (dysphasia and expressive aphasia occasionally due to previous stroke) - Respiratory Respiratory exam: Present: CTAB. Absent: accessory muscle use, rales, rhonchi, wheezes - Cardiovascular Cardiovascular exam: Present: RRR, +S1, +S2. Absent: diastolic murmur, gallop, rubs, systolic murmur
--- NOTE | 2016-09-18 15:20 | Physician Discharge Referral ---
ExtendedCare Referral Info Transfer To: [place] Provider in Charge: Britney Casas Provider in Charge after Transfer: PCP Institutional Level of Care: Skilled - Diagnosis (1) Sepsis Priority: Primary Status: Resolved (2) Metabolic encephalopathy Priority: Primary Status: Resolved (3) UTI (urinary tract infection) Priority: Primary Status: Acute (4) Bacteremia Priority: Primary Status: Acute (5) Coronary artery disease Priority: Secondary Status: Chronic (6) Diabetes Priority: Secondary Status: Chronic (7) Elevated troponin Priority: Primary Status: Resolved (8) Hypertension Priority: Secondary Status: Chronic Expected Duration of Placement: 3 weeks Prognosis: Good Aware of Diagnosis: Patient, Family Aware of Prognosis: Patient, Family - Transfer Medications Prescriptions: Levofloxacin [Levaquin] 500 mg PO DAILY #12 tablet Home Medications: Aspirin [Ecotrin] 325 mg PO DAILY 09/15/16 [History] Bicalutamide [Casodex] 50 mg PO DAILY 09/15/16 [History] Budesonide/Formoterol 160/4.5 [Symbicort 160/4.5] 2 puff IH BID 09/15/16 [ History] Clopidogrel [Plavix] 75 mg PO DAILY 09/15/16 [History] Furosemide [Lasix] 20 mg PO DAILY PRN 09/15/16 [History] GlipiZIDE [Glucotrol] 2.5 mg PO BID 09/15/16 [History] Metoprolol XL (24 HR) Succ [Toprol Xl] 12.5 mg PO DAILY 09/15/16 [History] Naproxen [Naprosyn] 500 mg PO BID PRN 09/15/16 [History] Potassium Chloride [Klor-Con 10] 10 meq PO DAILY 09/15/16 [History] Tamsulosin HCl [Flomax] 0.4 mg PO DAILY 09/15/16 [History] Vit C/E/Zn/Coppr/Lutein/Zeaxan [Preservision Areds 2 Softgel] 1 cap PO BID 09/15 [History] Levofloxacin [Levaquin] 500 mg PO DAILY #12 tablet 09/18/16 [Rx] Allergies/Adverse Reactions: Allergies codeine Allergy (Verified 03/13/16 04:46) Itching - Respiratory Orders Smoking Cessation: Smoking cessation has been advised. For more information, call the [employer] [place] Tobacco Quit Line at 6-849-SQSB-NOW. - Advance Directives Code Status: Full Code - Mobility Orders Ambulate - Rehabiliation Orders Rehab Potential: Fair Rehab Orders: ROM Exercises, Evaluation for Physical Therapy, Evaluation for Occupational Therapy - Diet Orders No Added Salt (NORMA), No Concentrated Sweets (diabetic), Cardiac CERTIFICATION: I certify that the transfer of the above named patient to an Extended Care Facility is necessary for the continuing treatment of the diagnosis listed. The above information is true and accurate reflection of patient's current condition. Confidential - Redisclosure prohibited without a patient's written consent.
[2016-09-18 16:44] VITALS: BP 142/78
== END 2016-09-18 17:50 | DRG 871 ==
LOC: 2ANU 13:18 → EMEROO 13:18 → 2ANU 17:38
PROVIDERS: ADMIT Internal Medicine; ATTEND Internal Medicine